=== PATIENT | female | born 1985 | race Native Hawaiian/Other Pacific Islander ===

== ENCOUNTER → 2016-04-03 | Outpatient (CLI) | payer OTHER | LOC: COL.RAD 03-25 10:30 | DX: M25.552 Pain in left hip (principal); S73.102A Unspecified sprain of left hip, initial encounter | CPT/HCPCS: J3301; Q9967 ==

== ENCOUNTER → 2016-12-25 | Outpatient (CLI) | payer OTHER | LOC: COL.RAD 13:22 | DX: M25.552 Pain in left hip (principal) | CPT/HCPCS: J3301; Q9967 ==